=== PATIENT | female | born 1970 | race Caucasian/White ===

== ENCOUNTER 2020-07-06 06:11 | Day surgery (SDC) | payer OTHER ==
[2020-07-04 14:37] LABS: BASOPHILS ABSOLUTE AUTO 0.06 K/mm3 (0.00-0.23); BASOPHILS PERCENT AUTO 1 % (0-2); EOSINOPHILS ABSOLUTE AUTO 0.09 K/mm3 (0.00-0.68); EOSINOPHILS PERCENT AUTO 1 % (0-6); IMMATURE GRAN ABSOLUTE AUTO 0.04 K/mm3 (0.00-0.10); IMMATURE GRAN PERCENT AUTO 1 % (0-1); LYMPHOCYTES PERCENT AUTO 30 % (21-46); MONOCYTES PERCENT AUTO 5 % (4-13); Mean Corpuscular HGB 29.2 pg (26.0-34.0); Mean Corpuscular HGB Conc 32.6 g/dL (31.5-36.5); Mean Corpuscular Volume 90 fL (80-100); NEUTROPHILS ABSOLUTE AUTO 5.27 K/mm3 (1.96-9.15); NEUTROPHILS PERCENT AUTO 63 % (41-73); Platelet Count 276 K/mm3 (150-400); RDW Coefficient Variation 12.4 % (11.7-14.2); RDW Standard Deviation 41.1 fL (35.1-46.3); Red Blood Cell Count 4.79 M/mm3 (3.80-5.20); White Blood Cell Count 8.36 K/mm3 (4.00-11.30)
[~2020-07-06] VITALS: Ht 121.9 cm; Wt 107.8 kg
[~2020-07-06 06:11] MED LIST: ARIP10 PO; BUPR150ER PO; CLON1 PO; ESCI10 PO; LITH300C PO; Lithium Carbon150 MG PO; METF500C PO; OXAYDO5 M1 PO
[2020-07-06] MEDS ORDERED: PROPRANOLOL HCL80 MG PO (06:36)
[2020-07-06] MEDS ORDERED: LEVSOD25 PO (06:37)
[2020-07-06] MEDS ORDERED: Carbamazepine100 MG PO (06:38)
[2020-07-06] MEDS ORDERED: THERA-D2000 UNIT PO (06:39)
--- NOTE | 2020-07-06 07:35 | NUR ---
Ambulatory in Day Surgery History, Chart, Medications and Allergies reviewed before start of procedure.Patient confirms NPO status and agrees with scheduled surgery. Patient reports completing Chlorhexadine shower X2 prior to admission to hospital.
--- NOTE | 2020-07-06 17:08 | NUR ---
SUMMARY NO ACUTE CHANGES SINCE ARRIVING TO UNIT FROM PACU. MEDICATED PT PER ORDERS FOR PAIN. PT SLEEPING AT THIS TIME. DISCUSSED PLAN WITH PT TO GET UP AND SIT IN CHAIR PRIOR TO DINNER. PT AGREEABLE WITH PLAN. WOULD LIKE [facility] SOON POSSIBLE. CALL LIGHT IN REACH.
--- NOTE | 2020-07-07 04:54 | NUR ---
POD 1 S/P TOTAL ROBOTIC HYSTER. PT VSS T/O NIGHT. INCISIONS CDI. PT HAVING VERY SCANT VAGINAL BLEEDING. PAIN MGD W/PERCOCET AND TORADOL W/REP RELIEF. PT NIC REG PO, NO N/V, REP PASSING FLATUS THIS AM. PT HAS BEEN VOIDING URINE W/O DIFFFICULTY SINCE KRUSE D/C. PT AMB INDEP IN ROOM, NIC WELL. PLAN TO D/C HOME TODAY.
[2020-07-07 05:30] LABS: BASOPHILS ABSOLUTE AUTO 0.03 K/mm3 (0.00-0.23); BASOPHILS PERCENT AUTO 0 % (0-2); EOSINOPHILS ABSOLUTE AUTO 0.02 K/mm3 (0.00-0.68); EOSINOPHILS PERCENT AUTO 0 % (0-6); Hematocrit 36.9 % (33.0-51.0); Hemoglobin 12.3 g/dL (11.5-16.0); IMMATURE GRAN ABSOLUTE AUTO 0.08 K/mm3 (0.00-0.10); IMMATURE GRAN PERCENT AUTO 1 % (0-1); LYMPHOCYTES ABSOLUTE AUTO 2.77 K/mm3 (0.84-5.20); LYMPHOCYTES PERCENT AUTO 19 % (21-46); MONOCYTES PERCENT AUTO 6 % (4-13); Mean Corpuscular HGB Conc 33.3 g/dL (31.5-36.5); Mean Corpuscular Volume 90 fL (80-100); Mean Platelet Volume 10.1 fL (9.1-12.4); NEUTROPHILS ABSOLUTE AUTO 10.58 K/mm3 (1.96-9.15); NEUTROPHILS PERCENT AUTO 74 % (41-73); Platelet Count 255 K/mm3 (150-400); RDW Coefficient Variation 12.4 % (11.7-14.2); RDW Standard Deviation 41.1 fL (35.1-46.3); White Blood Cell Count 14.38 K/mm3 (4.00-11.30)
[2020-07-07] MEDS ORDERED: SENN187 PO (13:57)
[2020-07-07] MEDS ORDERED: PROM25 PO (13:58)
[2020-07-07] MEDS ORDERED: SIME80CH PO (13:58)
[2020-07-07] MEDS ORDERED: DOCU100 PO (13:59)
[2020-07-07] MEDS ORDERED: ESTR2 PO (14:00)
[2020-07-07] MEDS ORDERED: IBUP400 PO (14:01)
[2020-07-07] MEDS ORDERED: DULCOLAX400 MG/5 M PO (14:02)
[2020-07-07] MEDS ORDERED: Percocet 5-3251 EACH PO (14:03)
--- NOTE | 2020-07-07 14:28 | NUR ---
DISCHARGE: PACKET PRINTED AND PT EDUCATED. PT GIVEN SCRIPTS. LEFT UNIT ON FOOT AT ABOUT 1410, DENIED NEED FOR WHEELCHAIR.
== END 2020-07-07 14:24 | disposition home or self-care (01) ==
LOC: ORSCMMR 06:11 → ORD 07:30 → SURS 11:38 → ORSCMMR 07-07 14:24
PROVIDERS: Obstetrics & Gynecology
PROC: 0UT24ZZ Resection of Bilateral Ovaries, Percutaneous Endoscopic Approach (ICD-10-PCS; principal; 2020-07-06 07:30)
PROC: 0UT94ZZ Resection of Uterus, Percutaneous Endoscopic Approach (ICD-10-PCS; principal; 2020-07-06 07:30)
PROC: 8E0W4CZ Robotic Assisted Procedure of Trunk Region, Percutaneous Endoscopic Approach (ICD-10-PCS; principal; 2020-07-06 07:30)
PROC: 0UT74ZZ Resection of Bilateral Fallopian Tubes, Percutaneous Endoscopic Approach (ICD-10-PCS; principal; 2020-07-06 07:30)
DX: N94.6 Dysmenorrhea, unspecified (principal); N94.12 Deep dyspareunia; N84.0 Polyp of corpus uteri; D25.9 Leiomyoma of uterus, unspecified; N73.6 Female pelvic peritoneal adhesions (postinfective); N72 Inflammatory disease of cervix uteri; E11.9 Type 2 diabetes mellitus without complications; E03.9 Hypothyroidism, unspecified; E66.01 Morbid (severe) obesity due to excess calories; Z68.42 Body mass index [BMI] 45.0-49.9, adult; F31.9 Bipolar disorder, unspecified; Z79.899 Other long term (current) drug therapy
CPT/HCPCS: 58571; S2900; 36415; 82947; 84702; 85025; 86850; 86900; 86901; 88307; 94762; A9270; J0690; J1100; J1885; J2250; J2270; J2405; J2704; J3010; J7120